=== PATIENT | female | born 2005 | race Caucasian/White ===

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

== ENCOUNTER 2025-08-04 17:50 | Emergency (ER) | payer BC, SELFPAY ==
[2025-08-04 17:52] VITALS: BP 126/79; PULSE 100; RESP 18; TEMP 36.2; O2SAT 98
--- NOTE | 2025-08-04 17:59 | ED.GENADUL_ITS ---
Discharge Plan Disposition Patient Disposition: Home Condition: Stable Discharge Details Clinical Impression: Bronchitis Primary Care Provider: Unknown,Unknown ED Provider: Thai Kline Home Meds and New Rx's Prescriptions: New amoxicillin-pot clavulanate 875-125 mg tablet 1 tab PO BID 5 Days Qty: 9 0RF Continued diphenhydramine HCl 25 MG capsule 25 mg PO PRN PRN epinephrine [EpiPen Jr 2-Miguelito] 0.15 MG/0.3 ML auto-injector 0.15 mg IM BID PRN (Reason: Anaphylaxis) Qty: 1 0RF loratadine [Claritin] 10 MG tablet 10 mg PO DAILY PRN Nexplanon 68 mg implant 1 implant subdermal ONCE Rx Instructions: as a single dose escitalopram oxalate 10 mg tablet 10 mg PO DAILY Patient Comments: TAKE ONE TABLET BY MOUTH EVERY DAY Discharge Instructions Instructions: Azithromycin (Systemic), Amoxicillin and Clavulanate, Bronchitis, Adult ED Additional Instructions: You were seen in the emergency department for your cough with productive phlegm and sputum for the past 2 to 3 weeks. This is a reasonable onset to treat with empiric antibiotics, you were prescribed Augmentin and azithromycin, please pick these up at your pharmacy and take them as directed starting tomorrow after the dose we gave you tonight. Please use therapeutic dosing of Tylenol (acetamenophen) & Advil (ibuprofen) in an alternating fashion as follows: Take 1000mg of Tylenol every 6 hours without missing doses- that is 4 times per day. Longterm in between the Tylenol dosings, take 400-600mg of Advil also on a 6 hour schedule, that is also 4 times per day. The daily maximum dosing of Tylenol is 4000mg, and the daily maximum dosing of Advil is 2400mg. This is safe to do for weeks. Please note that some common cold medications & prescription pain medications may contain acetamenophen and you need to read OTC drug labels and factor that in to maximum daily dosings. Use your inhaler as often as needed for shortness of breath, stay well-hydrated, please return for any respiratory distress or other emergent concerns. Discharge Data Discharge Date/Time-TO BE ENTERED AT DEPARTURE: 08/04/25 20:37 HPI General Date/Time Provider Initiated Documentation: 08/04/25 17:59 . HPI Narrative: 19 year-old female presents to ED today by POV/ambulating with a chief complaint of cough/cold symptoms with onset 2-3 weeks ago. Quality described as generalized cough, not getting better, thick mucous, no radiation to fever, shortness of breath, chest pain, profound lethargy, nausea/vomiting. Severity is described as moderate. Palliating factors include OTC meds not helping. [place] arsenio factors include nothing specific. Events leading up to the incident/Associated Symptoms: Patient has asthma and has run out of her inhaler. Patient not anticoagulated. Related Data Home Medications ?Medication ?Instructions ?Recorded ?Confirmed diphenhydramine HCl 25 mg capsule 25 mg PO PRN PRN 03/2708/04/25 epinephrine 0.15 mg/0.3 mL 0.15 mg (0.3 mL) IM BID PRN 04/15/17 08/04/25 injection,auto-injector (EpiPen Jr Anaphylaxis #1 pack et 2-Miguelito) etonogestrel 68 mg subdermal 1 implant subdermal ONCE 02/12/24 08/04/25 implant (Nexplanon) loratadine 10 mg tablet (Claritin) 10 mg PO DAILY PRN 02/12/24 08/04/25 amoxicillin 875 mg-potassium 1 tab PO BID 5 days #9 ta bs 08/04/25 clavulanate 125 mg tablet escitalopram oxalate 10 mg tablet 10 mg PO DAILY 08/0408/04/25 Previous Rx's ?Medication ?Instructions ?Recorded epinephrine 0.15 mg/0.3 mL 0.15 mg (0.3 mL) IM BID PRN 04/15/17 injection,auto-injector (EpiPen Jr Anaphylaxis #1 pack et 2-Miguelito) amoxicillin 875 mg-potassium 1 tab PO BID 5 days #9 ta bs 08/04/25 clavulanate 125 mg tablet Allergies Allergy/AdvReac Type Severity Reaction Status Date / Time No Known Allergies Allergy Unverified 08/04/25 17:56 General Stated Complaint: RespSymp CHRISTEN: 3 Review of Systems All systems reviewed & are unremarkable except as noted in HPI and below Exam Narrative Exam Narrative: GENERAL APPEARANCE: Well-nourished, non-toxic, awake and alert, atraumatic, no acute distress. SKIN: Warm, pink, dry, intact, without rashes/lesions/ulcerations. HEAD: Normocephalic, atraumatic, normal hair distribution for gender/age. EYES: Normal conjunctiva, no exudates on lids/lashes. ENT: Nares patent, no circumoral cyanosis, no facial swelling, benign posterior oropharynx NECK: Supple, trachea midline, painless cervical ROM. LUNGS/CHEST: Lungs CTA bilaterally- no focal wheezes/rhonchi, non-labored respirations, normal A/P diameter, symmetrical expansion, no chest wall deformity HEART (CV/PV): Regular rate and rhythm without murmur, no peripheral edema, no JVD. ABDOMEN: Soft, non-distended, no guarding. MSK: Normal ROM, no swelling/deformity to bilateral UEs or LEs, moving all extremities without weakness, no cyanosis, spine midline without tenderness, normal curvature. NEURO: Mental Status AAOx4 - alert to person, place, time, events No facial droop, no forehead involvement. Motor: No focal weakness - strength 5/5 in bilateral UEs and LEs, proximal and distal, symmetric. Sensory: sensation intact to light touch globally. Gait normal: patient ambulated without ataxia into ED room. PSYCH: euthymic, cooperative, pleasant, appropriate speech Course Vital Signs Vital signs: Vital Signs Temperature 36.2 C L 08/04/25 17:52 Pulse 100 H 08/04/25 17:52 Respiratory Rate 18 08/04/25 17:52 Blood Pressure 126/79 08/04/25 17:52 Pulse Oximetry 98 08/04/25 17:52 Temperature 36.2 C L 08/04/25 17:52 Temperature Source Tympanic 08/04/25 17:52 Pulse 100 H 08/04/25 17:52 Respiratory Rate 18 08/04/25 17:52 Blood Pressure 126/79 08/04/25 17:52 Pulse Oximetry 98 08/04/25 17:52 Oxygen Delivery Method Room Air 08/04/25 17:52 Oxygen Flow Rate 0 08/04/25 17:52 Pain Level 0 08/04/25 17:52 Medical Decision Making This dictation utilizes [id number] dictation software and may contain unedited grammatical errors. 19 year-old female presents to ED today by POV/ambulating with a chief complaint of cough/cold symptoms with onset 2-3 weeks ago. Quality described as generalized cough, not getting better, thick mucous, no radiation to fever, shortness of breath, chest pain, profound lethargy, nausea/vomiting. Severity is described as moderate. Palliating factors include OTC meds not helping. Pr ovoking factors include nothing specific. Events leading up to the incident/Associated Symptoms: Patient has asthma and has run out of her inhaler. Patients' medical history: asthma. Family and social history: noncontributory. Pertinent exam findings / vital signs include lungs CTA, nontoxic and afebrile, no respiratory distress. Differential / pathologies of concern include pneumonia, bronchitis, less likely viral syndrome with 3 week onset, not sepsis or respiratory distress. Diagnostic studies of: -XR Chest - no focal pneumonia seen. Interventions of: -1 nebulizer treatment, inhaler to go, Rx for Augmentin/azith for bronchitis. ED Course/Assessment/Plan: 19-year-old female presents with 3 weeks of upper respiratory infection with some mucus production, x-ray shows no focal pneumonia, she is afebrile and in no respiratory distress, reasonable to trial antibiotics due to length of onset, strict return Kohr any respiratory distress. Findings not consistent with pneumonia, sepsis, respiratory distress. Disposition of bronchitis. Patient verbalized understanding of the plan and return to ED criteria and engaged in shared decision making. Medical Records Medical records reviewed: Yes I reviewed the patient's medical records. Imaging Data Radiologic Study: Attestation: I personally reviewed and interpreted this imaging study as follows: Imaging: X-Ray Radiologist's impression: Exam: XR Chest Exam date and time: 08/04/2025 7:17 PM Age: 19 years old Clinical indication: Cough TECHNIQUE: Imaging protocol: Radiologic exam of the chest. Views: 2 views. COMPARISON: CT THORACIC LUMBAR SPINE WO 02/12/2024 9:36 AM FINDINGS: Lungs: Unremarkable. No consolidation. Pleural spaces: Unremarkable. No pleural effusion. No pneumothorax. Heart/Mediastinum: Unremarkable. No cardiomegaly. Bones/joints: Unremarkable. IMPRESSION: No acute findings. Dictated and Authenticated by: Norm Olivo MD. Lab Data Lab results reviewed: Yes I reviewed the patient's lab results. PFSH All Active Problems (Updated 08/04/25 @ 20:03 by LAURO Dick) Bronchitis (Acute) Acute cervical myofascial strain (Acute) Social History Smoking/Tobacco Use Status: Never Smoking risk assessment performed?: Yes Alcohol Intake: never Drug use: Never Substance use type: does not use Housing: house Do you feel safe in your relationship?: Yes
[2025-08-04] MEDS: Albuterol/Ipratropium 3 ML UPD VIAL UPD (18:30)
[2025-08-04 18:31] VITALS: BP 126/79; PULSE 100; RESP 18; TEMP 36.2; O2SAT 98
[2025-08-04 19:16] VITALS: BP 124/70; PULSE 92; RESP 18; O2SAT 99
--- NOTE | 2025-08-04 19:16 | DI.RAD_ITS ---
Exam(s) XR CHEST 2V PA LATERAL EXAM: XR CHEST 2V PA LATERAL CLINICAL HISTORY: cough TECHNIQUE: 2D digital imaging was performed. Two views. COMPARISON: No exams were available for comparison FINDINGS: HEART: Normal size. Aorta: Not dilated. PULMONARY VASCULATURE: Normal. MEDIASTINUM: Unremarkable. LUNGS: Clear. PLEURAL SPACE: No pleural effusion or pneumothorax. BONE:Unremarkable for age. SOFT TISSUES: Unremarkable. IMPRESSION: No acute abnormality. The preliminary [facility] report was reviewed. DATA REPOSITORY: RADIATION DOSE DELIVERED:
[2025-08-04] MEDS: Azithromycin 250 MG TAB 500 MG PO (20:15)
[2025-08-04] MEDS: Albuterol HFA 8 GM 60 PUFF INH IH (20:15)
[2025-08-04] MEDS: Amoxicillin 875/Clav. 125 TAB PO (20:15)
--- NOTE | 2025-08-04 20:21 | DI.[facility]_ITS ---
PROCEDURE INFORMATION: Exam: XR Chest Exam date and time: 08/04/2025 7:17 PM Age: 19 years old Clinical indication: Cough TECHNIQUE: Imaging protocol: Radiologic exam of the chest. Views: 2 views. COMPARISON: CT THORACIC LUMBAR SPINE WO 02/12/2024 9:36 AM FINDINGS: Lungs: Unremarkable. No consolidation. Pleural spaces: Unremarkable. No pleural effusion. No pneumothorax. Heart/Mediastinum: Unremarkable. No cardiomegaly. Bones/joints: Unremarkable. IMPRESSION: No acute findings. Dictated and Authenticated by: Norm Olivo MD. Orderin Eliud Andre MD
[2025-08-04 20:29] VITALS: PULSE 90; O2SAT 99
== END 2025-08-04 20:37 | disposition home or self-care (01) ==
PROVIDERS: Emergency Provider Physician Assistant
DX: J40 Bronchitis, not specified as acute or chronic (principal)
CPT/HCPCS: 81025; 94640; 99284; 71046; J7620

== ENCOUNTER 2025-08-11 20:05 | Emergency (ER) | payer BC, SELFPAY ==
[2025-08-11] VITALS (16 sets, daily range): BP systolic 82–129; BP diastolic 45–74; PULSE 59–79; RESP 16–20; TEMP 36.7; O2SAT 98–100
[2025-08-11] MEDS: diphenhydrAMINE 25 MG CAP 50 MG PO (20:54)
--- NOTE | 2025-08-11 21:56 | W.ED.GENAD ---
Discharge Plan Disposition Patient Disposition: Home Condition: Stable Discharge Details Clinical Impression: Allergic reaction Primary Care Provider: Unknown,Unknown ED Provider: Helen Mcdonald Home Meds and New Rx's Prescriptions: New epinephrine [Auvi-Q] 0.3 mg/0.3 mL auto-injector 0.3 mg IM ONCE Qty: 2 0RF Rx Instructions: as a single dose; may repeat once No Action diphenhydramine HCl 25 MG capsule 25 mg PO PRN PRN epinephrine [EpiPen Jr 2-Miguelito] 0.15 MG/0.3 ML auto-injector 0.15 mg IM BID PRN (Reason: Anaphylaxis) Qty: 1 0RF loratadine [Claritin] 10 MG tablet 10 mg PO DAILY PRN Nexplanon 68 mg implant 1 implant subdermal ONCE Rx Instructions: as a single dose escitalopram oxalate 10 mg tablet 10 mg PO DAILY Patient Comments: TAKE ONE TABLET BY MOUTH EVERY DAY albuterol sulfate 90 mcg/actuation HFA aerosol inhaler 2 puff INHALATION Q4H PRN Discharge Instructions Instructions: Allergic Reaction ED Additional Instructions: You were seen in the emergency department today for evaluation of hives on your skin likely due to an allergic reaction. In our department notable physical examination performed, received medications for management of your hives, and had reassuring laboratory studies including a negative mononucleosis test. You received antihistamines and steroids for management of your hives. You did not require epinephrine but I did provide you with a refill on your EpiPen's, please pick these up at the pharmacy and keep them on your person. Your allergy list has been updated, as you likely are experiencing a reaction to the azithromycin that you recently took. If you do give yourself an EpiPen for shortness of breath, throat swelling, or other symptoms of anaphylaxis, you need to come to the emergency department for evaluation afterwards. You can continue to use Benadryl or nonsedating antihistamine such as Claritin or Zyrtec as needed for itching and rash. Please follow-up with your primary care provider in the next few days to discuss this visit and any symptoms that change, worsen, or persist. Thank you for allowing us to be part of your care. HPI General Mode of arrival: ambulatory. Date/Time Provider Initiated Documentation: 08/11/25 20:09. Limitations to Documentation: no limitations. Information obtained by: patient and old records reviewed. HPI Narrative: This is a 19-year-old female patient with a past medical history significant for seasonal allergies and a recent visit to our emergency department with a diagnosis of bronchitis after 3 weeks of shortness of breath, runny nose, and productive cough, presenting for evaluation of a skin rash. She reports that she completed a course of azithromycin yesterday, and today woke up with itchy red bumps all over her body. She reports that she cannot think of any other allergen exposures, does not typically have a problem with peanut butter though has been eating more of this recently. No other new soaps or detergents. The patient reports that she does not have any new or worsening shortness of breath, sensation of throat closing, or nausea. She did have 1 episode of vomiting earlier today, but currently feels well. She has not taken any medications at home to manage her symptoms. She has an EpiPen prescribed to her but has not needed to use it in many many years. Related Data Home Medications ?Medication ?Instructions ?Recorded ?Confirmed diphenhydramine HCl 25 mg capsule 25 mg PO PRN PRN 04/15/17 08/11/25 epinephrine 0.15 mg/0.3 mL 0.15 mg (0.3 mL) IM BID PRN 04/15/17 08/11/25 injection,auto-injector (EpiPen Jr Anaphylaxis #1 packet 2-Miguelito) etonogestrel 68 mg subdermal 1 implant subdermal ONCE 02/12/24 08/11/25 implant (Nexplanon) loratadine 10 mg tablet (Claritin) 10 mg PO DAILY PRN 02/12/24 08/11/25 escitalopram oxalate 10 mg tablet 10 mg PO DAILY 08/04/25 08/11/25 albuterol sulfate 90 mcg/actuation 2 puff inhalation Q4H PRN 08/11/25 08/11/25 aerosol inhaler epinephrine 0.3 mg/0.3 mL 0.3 mg (0.3 mL) IM ONCE #2 ea 08/11/25 injection, auto-injector (Auvi-Q) Previous Rx's ?Medication ?Instructions ?Recorded epinephrine 0.15 mg/0.3 mL 0.15 mg (0.3 mL) IM BID PRN 04/15/17 injection,auto-injector (EpiPen Jr Anaphylaxis #1 packet 2-Miguelito) epinephrine 0.3 mg/0.3 mL 0.3 mg (0.3 mL) IM ONCE #2 ea 08/11/25 injection, auto-injector (Auvi-Q) Allergies Allergy/AdvReac Type Severity Reaction Status Date / Time azithromycin Allergy Intermediate Hives Verified 08/11/25 22:57 General Stated Complaint: RashLesion CHRISTEN: 3 Exam Narrative Exam Narrative: Gen: Awake and alert, in no apparent distress HEENT: Non-icteric sclera, PERRL, conjunctiva not injected. Posterior pharynx without erythema, edema, or swelling. No changes in voice Neck: Supple, stridor Lungs: No apparent respiratory distress, normal respiratory effort. Lung sounds clear and equal bilaterally without wheezes, rhonchi, rales CV: Appears well perfused, heart with regular rate and rhythm, strong distal pulses Abdomen: Non-distended, soft, nontender MSK: Moves 4 extremities without apparent limitation in ROM Skin: Visualized skin with diffuse raised red bumps, with some urticarial changes. Some excoriations are appreciated especially along the patient's back. The rash is diffuse across the torso, abdomen, back, and extremities. No blistering, petechiae Neuro: Normal Gait, no obvious focal deficits or facial asymmetry. Speaks in full, clear sentences. Psych: Appropriate for situation. Course Vital Signs Vital signs: Vital Signs Temperature 36.7 C 08/11/25 20:14 Pulse 79 08/11/25 20:14 Respiratory Rate 20 08/11/25 20:14 Blood Pressure 129/74 08/11/25 20:14 Pulse Oximetry 99 08/11/25 20:14 Temperature 36.7 C 08/11/25 20:14 Pulse 79 08/11/25 20:14 Respiratory Rate 20 08/11/25 20:14 Blood Pressure 129/74 08/11/25 20:14 Blood Pressure Position Sitting 08/11/25 20:14 Pulse Oximetry 99 08/11/25 20:14 Oxygen Delivery Method Room Air 08/11/25 20:14 Oxygen Flow Rate 0 08/11/25 20:14 Medical Decision Making This is a 19-year-old female patient presenting for evaluation of a body rash. Differential includes but is not limited to allergic reaction, especially given her recent antibiotic use. Reassuringly, the patient does not have any throat swelling, shortness of breath, or hypotension to significantly increase my concern for anaphylaxis. Her single episode of vomiting was considered, at this time we will continue to monitor for further GI involvement given her overall very reassuring appearance. I also considered my differential viral exanthem, drug eruptions including dress, skin exam less concerning for SJS/TEN. I had a shared decision-making conversation with the patient, who is desiring to try oral medications to start. I will provide her with 50 mg of p.o. Benadryl. We will continue to observe and any development of airway or throat involvement will warrant escalation to anaphylaxis treatment. -On repeat evaluation the patient reports that the Benadryl has not helped at all. For this reason we will initiate an IV, and provide the patient with Pepcid and Solu-Medrol. I will also obtain labs to include CBC, CMP, magnesium, and Monospot. - The patient did experience what appears to be a vasovagal episode with transient decrease in blood pressure and lightheadedness after IV initiation. A liter of IV fluids will be provided. I independently interpreted the laboratory studies, which show no significant leukocytosis, anemia, or thrombocytopenia. The chemistry panel is without evidence of electrolyte abnormality, kidney dysfunction, or liver injury. Monospot negative. I have a low concern for emergent drug eruption. The patient had improvement in her blood pressure after fluids, was able to ambulate about the department without lightheadedness or dizziness. Her itchiness has resolved and her rash is much improved. A refill of her EpiPen was sent to her pharmacy and we discussed warning signs for anaphylaxis and use of an EpiPen. At this time, the patient has had a full medical evaluation and is safe for discharge to home. They are hemodynamically stable, ambulatory, and tolerating PO. They are understanding of the follow-up plan and return precautions. They left our facility without incident. Helen Mcdnoald MD [facility] All Active Problems (Updated 08/11/25 @ 22:58 by Helen Mcdonald MD) Allergic reaction (Acute) Bronchitis (Acute) Acute cervical myofascial strain (Acute) Social History Smoking/Tobacco Use Status: Never Smoking risk assessment performed?: Yes Alcohol Intake: never Drug use: Never Substance use type: does not use Housing: house Do you feel safe in your relationship?: Yes
[2025-08-11 22:20] LABS: Abs Immature Grans 0.02 10^3/uL (0.0-0.06); HCT 38.2 % (36.0-46.0); HGB 12.6 g/dL (11.2-15.7); Immature Grans % 0.3 %; MCH 29.9 pg (27.0-33.0); MCHC 33.0 % (32.0-36.0); MCV 91 fL (80-95); MPV 8.3 fL (8.0-11.0); Platelet Count 255 10^3/uL (130-400); RBC 4.22 10^6/uL (3.93-5.22); RDW 12.4 % (11.7-14.6); RDW-SD 40.8 fL; WBC 6.77 10^3/uL (4.4-10.8)
[2025-08-11] MEDS: Lactated Ringers 1,000 ML 1000 ML IV (22:29)
[2025-08-11 22:31] LABS: Mono Screening Negative (Negative)
[2025-08-11] MEDS: Famotidine 20 MG/2 ML VIAL IVP (22:31)
[2025-08-11] MEDS: methylPREDNISolone SUCC 125 MG VIAL IVP (22:31)
[2025-08-11 22:38] LABS: ALT 23 U/L (14-59); AST 16 U/L (15-37); Albumin 3.4 g/dL (3.4-5.0); Alkaline Phosphatase 72 U/L (46-116); Anion Gap 7.8 mmol/L (3-11); BUN 15 mg/dL (7-18); Bilirubin, Total 0.4 mg/dL (0.2-1.0); CO2 28.2 mmol/L (21.0-32.0); Calcium 8.7 mg/dL (8.5-10.1); Chloride 105 mmol/L (98-107); Estimated GFR 108.78 (mL/min/1.73m2); Glucose 90 mg/dL (74-106); Magnesium 1.9 mg/dL (1.8-2.4); Potassium 3.7 mmol/L (3.5-5.1); Sodium 141 mmol/L (136-145); Total Protein 7.3 g/dL (6.4-8.2)
[2025-08-12] VITALS: PULSE 64; O2SAT 97
[2025-08-12 00:01] VITALS: BP 83/45; PULSE 63; O2SAT 98
[2025-08-12 00:05] VITALS: BP 106/65; PULSE 71
[2025-08-12 00:11] VITALS: BP 106/65; PULSE 67; RESP 18; O2SAT 98
== END 2025-08-12 00:40 | disposition home or self-care (01) ==
PROVIDERS: Emergency Provider Emergency Medicine
DX: T78.40XA Allergy, unspecified, initial encounter (principal)
CPT/HCPCS: 99284 ×2; 36415; 96374; 96375; 80053; 96361; 83735; 85025; 86308; J2919

== ENCOUNTER 2025-08-12 15:38 | Emergency (ER) | payer BC, SELFPAY ==
[2025-08-12 15:40] VITALS: BP 143/79; PULSE 84; RESP 20; TEMP 36.8; O2SAT 96
--- NOTE | 2025-08-12 16:22 | W.ED.GENAD ---
Discharge Plan Disposition Patient Disposition: Home Condition: Stable Discharge Details Clinical Impression: Allergic reaction Primary Care Provider: Rizwan Fraser ED Provider: Thai Kline Home Meds and New Rx's Prescriptions: New prednisone 20 mg tablet See Rx Instructions .ROUTE .COMPLEX Qty: 18 0RF Rx Instructions: take 3 tablets by mouth once per day for 3 days, then take 2 tablets by mouth once per day for 3 days, then take 1 tablet by mouth once per day for 3 days Continued diphenhydramine HCl 25 MG capsule 25 mg PO PRN PRN epinephrine [EpiPen Jr 2-Miguelito] 0.15 MG/0.3 ML auto-injector 0.15 mg IM BID PRN (Reason: Anaphylaxis) Qty: 1 0RF loratadine [Claritin] 10 MG tablet 10 mg PO DAILY PRN Nexplanon 68 mg implant 1 implant subdermal ONCE Rx Instructions: as a single dose escitalopram oxalate 10 mg tablet 10 mg PO DAILY Patient Comments: TAKE ONE TABLET BY MOUTH EVERY DAY albuterol sulfate 90 mcg/actuation HFA aerosol inhaler 2 puff INHALATION Q4H PRN epinephrine [Auvi-Q] 0.3 mg/0.3 mL auto-injector 0.3 mg IM ONCE Qty: 2 0RF Rx Instructions: as a single dose; may repeat once Discharge Instructions Instructions: Prednisone, Allergic Reaction ED Additional Instructions: You were seen in the emergency department for your worsening rash, we are starting you on a 9-day taper of prednisone, take this as directed. Take an pypf-ape-[id number] /Claritin/Zyrtec of your preference of brand 1-2 times daily, you can take Benadryl in the evening, you can also take aqno-sgy-eqmimje Pepcid/famotidine for histamine 2 blocking, take 400 mg of ibuprofen every 6 hours, monitor your condition closely for any sloughing of skin with pressure, nausea or vomiting or respiratory distress or airway concerns and return for any, please speak to your primary care provider if you continue to have respiratory symptoms. Referrals: Rizwan Fraser [Primary Care Provider, Medicine] Discharge Data Discharge Date/Time-TO BE ENTERED AT DEPARTURE: 08/12/25 16:59 HPI General Date/Time Provider Initiated Documentation: 08/12/25 15:38. HPI Narrative: 19 year-old female presents to ED today by POV/ambulating with a chief complaint of worsening rash, 4 weeks of respiratory infection treated with azithro/augmentin by myself last week after negative chest x-ray for presumptive bacterial duration of illness- added azithromycin to allergy list with onset of worsening rash today after being seen last night given solumedrol and benadryl. Quality described as itchy rash to legs and entire torso, now feels like its spreading to her face, no radiation to nausea/vomiting, sloughing of skin, fever, difficulty breathing, wheezing. Severity is described as severe for rash. Palliating factors include improvement after meds yesterday. Provoking factors include worsened today even after benadryl. Events leading up to the incident/Associated Symptoms: patient denies any other known allergens. Patient not anticoagulated. Related Data Home Medications ?Medication ?Instructions ?Recorded ?Confirmed diphenhydramine HCl 25 mg capsule 25 mg PO PRN PRN 04/15/17 08/12/25 epinephrine 0.15 mg/0.3 mL 0.15 mg (0.3 mL) IM BID PRN 04/15/17 08/12/25 injection,auto-injector (EpiPen Jr Anaphylaxis #1 packet 2-Miguelito) etonogestrel 68 mg subdermal 1 implant subdermal ONCE 02/12/24 08/12/25 implant (Nexplanon) loratadine 10 mg tablet (Claritin) 10 mg PO DAILY PRN 02/12/24 08/12/25 escitalopram oxalate 10 mg tablet 10 mg PO DAILY 08/04/25 08/12/25 albuterol sulfate 90 mcg/actuation 2 puff inhalation Q4H PRN 08/11/25 08/12/25 aerosol inhaler epinephrine 0.3 mg/0.3 mL 0.3 mg (0.3 mL) IM ONCE #2 ea 08/11/25 08/12/25 injection, auto-injector (Auvi-Q) prednisone 20 mg tablet See Rx Instructions .Route 08/12/25 .COMPLEX #18 tabs Previous Rx's ?Medication ?Instructions ?Recorded epinephrine 0.15 mg/0.3 mL 0.15 mg (0.3 mL) IM BID PRN 04/15/17 injection,auto-injector (EpiPen Jr Anaphylaxis #1 packet 2-Miguelito) epinephrine 0.3 mg/0.3 mL 0.3 mg (0.3 mL) IM ONCE #2 ea 08/11/25 injection, auto-injector (Auvi-Q) prednisone 20 mg tablet See Rx Instructions .Route 08/12/25 .COMPLEX #18 tabs Allergies Allergy/AdvReac Type Severity Reaction Status Date / Time azithromycin Allergy Intermediate Hives Verified 08/12/25 15:43 General Stated Complaint: RashLesion CHRISTEN: 3 Review of Systems All systems reviewed & are unremarkable except as noted in HPI and below Exam Narrative Exam Narrative: GENERAL APPEARANCE: Well-nourished, non-toxic, awake and alert, atraumatic, no acute distress. SKIN: Warm, pink, dry, diffuse urticarial rash to the back and torso, legs not visualized HEAD: Normocephalic, atraumatic, normal hair distribution for gender/age. EYES: Normal conjunctiva, no exudates on lids/lashes. ENT: Nares patent, no circumoral cyanosis, no facial swelling NECK: Supple, trachea midline, painless cervical ROM. LUNGS/CHEST: Lungs CTA bilaterally- no wheezing, non-labored respirations, normal A/P diameter, symmetrical expansion, no chest wall deformity HEART (CV/PV): Regular rate and rhythm without murmur, no peripheral edema, no JVD. ABDOMEN: Soft, non-distended, no guarding. MSK: Normal ROM, no swelling/deformity to bilateral UEs or LEs, moving all extremities without weakness, no cyanosis, spine midline without tenderness, normal curvature. NEURO: Mental Status AAOx4 - alert to person, place, time, events No facial droop, no forehead involvement. Motor: No focal weakness Sensory: sensation intact to light touch globally. Gait normal: patient ambulated without ataxia into ED room. PSYCH: euthymic, cooperative, pleasant, appropriate speech Course Vital Signs Vital signs: Vital Signs Temperature 36.8 C 08/12/25 15:40 Pulse 84 08/12/25 15:40 Respiratory Rate 20 08/12/25 15:40 Blood Pressure 143/79 H 08/12/25 15:40 Pulse Oximetry 96 08/12/25 15:40 Temperature 36.8 C 08/12/25 15:40 Pulse 84 08/12/25 15:40 Respiratory Rate 20 08/12/25 15:40 Blood Pressure 143/79 H 08/12/25 15:40 Blood Pressure Position Sitting 08/12/25 15:40 Pulse Oximetry 96 08/12/25 15:40 Oxygen Delivery Method Room Air 08/12/25 15:40 Oxygen Flow Rate 0 08/12/25 15:40 Medical Decision Making This dictation utilizes vogqu-ne-yvar dictation software and may contain unedited grammatical errors. 19 year-old female presents to ED today by POV/ambulating with a chief complaint of worsening rash, 4 weeks of respiratory infection treated with azithro/augmentin by myself last week after negative chest x-ray for presumptive bacterial duration of illness- added azithromycin to allergy list with onset of worsening rash today after being seen last night given solumedrol and benadryl. Quality described as itchy rash to legs and entire torso, now feels like its spreading to her face, no radiation to nausea/vomiting, sloughing of skin, fever, difficulty breathing, wheezing. Severity is described as severe for rash. Palliating factors include improvement after meds yesterday. Provoking factors include worsened today even after benadryl. Events leading up to the incident/Associated Symptoms: patient denies any other known allergens. Patients' medical history: No known allergies. Family and social history: Noncontributory. Pertinent exam findings / vital signs include diffuse urticarial rash to the back and torso, legs not visualized, benign oropharynx without any oral lesions, no wheezing, maintaining airway inability to swallow. Differential / pathologies of concern include allergic reaction, amoxicillin rash. Diagnostic studies of: -reviewed diagnostics yesterday- negative mono-spot. Interventions of: -prednisone 9 day taper, recommend allergra/claritin/zyrtec daily, and famotidine daily. ED Course/Assessment/Plan: 19-year-old female presents for third visit close 1 to PCP for 4 weeks of respiratory infection and worsening rash, it is possible that she was allergic to an antibiotic, the rash appears atypical for an azithromycin rash but there is quite a similarity to amoxicillin rash, negative Monospot test yesterday do not suspect mono, plan to prescribe prednisone and recommend various antihistamines and regular dosing of ibuprofen with any sloughing of skin or oral symptoms worsening or respiratory distress to return immediately. Findings not consistent with SJS or TENS, anaphylaxis. Disposition of allergic reaction. Patient verbalized understanding of the plan and return to ED criteria and engaged in shared decision making. Medical Records Medical records reviewed: Yes I reviewed the patient's medical records. PFSH All Active Problems (Updated 08/12/25 @ 16:46 by LAURO Dick) Allergic reaction (Acute) Allergic reaction (Acute) Bronchitis (Acute) Acute cervical myofascial strain (Acute) Social History Smoking/Tobacco Use Status: Never Smoking risk assessment performed?: Yes Alcohol Intake: never Drug use: Never Substance use type: does not use Housing: house Do you feel safe in your relationship?: Yes
[2025-08-12 16:59] VITALS: BP 113/61; PULSE 72; RESP 16; O2SAT 98
== END 2025-08-12 16:59 | disposition home or self-care (01) ==
PROVIDERS: Emergency Provider Physician Assistant; PCP Family Medicine
DX: T36.0X5A Adverse effect of penicillins, initial encounter; R21 Rash and other nonspecific skin eruption
CPT/HCPCS: 99283

== ENCOUNTER 2025-09-17 00:55 | Emergency (ER) | payer BC, SELFPAY ==
[2025-09-17 00:57] VITALS: BP 139/74; PULSE 133; RESP 20; TEMP 37; O2SAT 98
--- NOTE | 2025-09-17 00:57 | W.ED.GENAD ---
Discharge Plan Disposition Patient Disposition: Home Condition: Good Discharge Details Clinical Impression: Viral illness Primary Care Provider: Rizwan Fraser ED Provider: Hood Powers [place] Meds and New Rx's Prescriptions: New ondansetron 4 mg Tablet,Disintegrating 4 mg PO Q8H PRN (Reason: nausea) Qty: 3 0RF Continued diphenhydramine HCl 25 MG capsule 25 mg PO PRN PRN epinephrine [EpiPen Jr 2-Miguelito] 0.15 MG/0.3 ML auto-injector 0.15 mg IM BID PRN (Reason: Anaphylaxis) Qty: 1 0RF Nexplanon 68 mg implant 1 implant subdermal ONCE Rx Instructions: as a single dose escitalopram oxalate 10 mg tablet 10 mg PO DAILY Patient Comments: TAKE ONE TABLET BY MOUTH EVERY DAY albuterol sulfate 90 mcg/actuation HFA aerosol inhaler 2 puff INHALATION Q4H PRN epinephrine [Auvi-Q] 0.3 mg/0.3 mL auto-injector 0.3 mg IM ONCE Qty: 2 0RF Rx Instructions: as a single dose; may repeat once Discharge Instructions Additional Instructions: You were seen in the ED for symptoms consistent with a viral illness. Your rapid strep and nasal swab are all negative, though your white count was elevated consistent with infection. You have improved with fluids and medications. Recommend resting and staying hydrated over the next couple of days. Alternate acetaminophen with ibuprofen for fever and pain. You have been provided with ondansetron for recurrent nausea. Follow-up with primary care next week if you are not improving. Return to ED for significantly worsening headache, neurologic change, difficulty breathing, persistent vomiting, abdominal pain, other concerns. Stand Alone Forms: Portal Information, Work Release Referrals: Rizwan Fraser [Primary Care Provider, Medicine] [facility] General Mode of arrival: ambulatory. Date/Time Provider Initiated Documentation: 09/17/25 00:57. Limitations to Documentation: no limitations. Information obtained by: patient. HPI Narrative: Patient presents to the ED with complaint of headache, body ache, nausea with dry heaves. Patient reports she developed a sore throat this morning. Subsequently developed headache which has now progressed to allover body pain, nausea with dry heaves, worsening headache. Continues to have sore throat. Has a lingering cough from previous diagnosis of bronchitis but had the most part recovered from that. Did take Excedrin for her headache which maybe helped a little. Still very nauseated. No shortness of breath or chest pain. Related Data Home Medications Medication Instructions Recorded Confirmed diphenhydramine HCl 25 mg capsule 25 mg PO PRN PRN 04/15/17 09/17/25 epinephrine 0.15 mg/0.3 mL 0.15 mg (0.3 mL) IM BID PRN 04/15/17 09/17/25 injection,auto-injector (EpiPen Jr Anaphylaxis #1 packet 2-Miguelito) etonogestrel 68 mg subdermal 1 implant subdermal ONCE 02/12/24 09/17/25 implant (Nexplanon) escitalopram oxalate 10 mg tablet 10 mg PO DAILY 08/04/25 09/17/25 albuterol sulfate 90 mcg/actuation 2 puff inhalation Q4H PRN 08/11/25 09/17/25 aerosol inhaler epinephrine 0.3 mg/0.3 mL 0.3 mg (0.3 mL) IM ONCE #2 ea 08/11/25 09/17/25 injection, auto-injector (Auvi-Q) ondansetron 4 mg disintegrating 4 mg PO Q8H PRN nausea #3 tabs 09/17/25 tablet Previous Rx's Medication Instructions Recorded epinephrine 0.15 mg/0.3 mL 0.15 mg (0.3 mL) IM BID PRN 04/15/17 injection,auto-injector (EpiPen Jr Anaphylaxis #1 packet 2-Miguelito) epinephrine 0.3 mg/0.3 mL 0.3 mg (0.3 mL) IM ONCE #2 ea 08/11/25 injection, auto-injector (Auvi-Q) ondansetron 4 mg disintegrating 4 mg PO Q8H PRN nausea #3 tabs 09/17/25 tablet Allergies Allergy/AdvReac Type Severity Reaction Status Date / Time azithromycin Allergy Intermediate Hives Verified 08/12/25 15:43 General CHRISTEN: 3 Exam Narrative Exam Narrative: Const: WDWN female in NAD. VS per triage. HEENT: NC/AT. Normal facial exam. OP is clear. Neck: Supple. Trachea midline. Lungs: Normal respiratory effort. Lungs are clear. Cor: RRR without murmur. Good radial pulses. GI: Soft/ND/NT. Neuro: A+O x 3. Normal speech, mentation. Cranial nerves II - XII grossly intact. No gross motor or sensory deficit. Ext: No C/C/E. Medical Decision Making Patient presenting to ED with onset of sore throat followed by headache followed by worsening symptoms to include body pain, nausea and dry heaves, worsening headache. She reports a lingering cough from previous but has no shortness of breath or chest pain. Headache started out as typical though she does not get them too often. Suspect this is all related to viral illness potentially COVID or influenza. She is tachycardic. She is neurologically intact. Complains of some neck stiffness but is completely supple with no meningeal sign. Will place an IV to give fluids, ketorolac, prochlorperazine. Will check a Fluvid as well as rapid strep and basic labs. Lungs are clear and saturations are normal for the time being I do not feel the need to proceed with chest imaging. Patient is much improved at this time and feels much better. Her rapid strep is negative. Fluvid is negative. White count is elevated to 17.4 with a preponderance of neutrophils. Chemistries and liver function unremarkable. At this point seems to have viral illness and will recommend rest and hydration over the next couple of days. Will send home with a few Zofran in case of recurrent nausea. She should alternate acetaminophen with ibuprofen. Follow-up with primary care next week if not improving. Return precautions provided. Lab Data Lab results reviewed: Yes I reviewed the patient's lab results. Lab results narrative: see [facility] All Active Problems (Updated 09/17/25 @ 02:08 by Hood Powers MD) Viral illness (Acute) Acute cervical myofascial strain (Acute) Social History Smoking/Tobacco Use Status: Never Smoking risk assessment performed?: Yes Alcohol Intake: never Drug use: Never Substance use type: does not use Housing: house Do you feel safe in your relationship?: Yes
[2025-09-17 01:16] LABS: Abs Immature Grans 0.06 10^3/uL (0.0-0.06); HCT 35.6 % (36.0-46.0); HGB 12.4 g/dL (11.2-15.7); Immature Grans % 0.3 %; MCH 30.5 pg (27.0-33.0); MCHC 34.8 % (32.0-36.0); MCV 88 fL (80-95); MPV 8.0 fL (8.0-11.0); Platelet Count 222 10^3/uL (130-400); RBC 4.06 10^6/uL (3.93-5.22); RDW 12.2 % (11.7-14.6); RDW-SD 39.2 fL; WBC 17.35 10^3/uL (4.4-10.8)
[2025-09-17] MEDS: Normal Saline 1,000 ML 1000 ML IV (01:20)
[2025-09-17] MEDS: Prochlorperazine 10 MG/2 ML VIAL IVP (01:21)
[2025-09-17] MEDS: Ketorolac 15 MG/ML VIAL IVP (01:21)
[2025-09-17 01:25] VITALS: PULSE 101; RESP 16; O2SAT 100
[2025-09-17 01:29] LABS: HCG Qual (Serum) Negative
[2025-09-17 01:33] LABS: ALT 16 U/L (14-59); AST 13 U/L (15-37); Albumin 3.2 g/dL (3.4-5.0); Alkaline Phosphatase 84 U/L (46-116); Anion Gap 9.9 mmol/L (3-11); BUN 9 mg/dL (7-18); Bilirubin, Total 1.1 mg/dL (0.2-1.0); CO2 24.1 mmol/L (21.0-32.0); Calcium 8.6 mg/dL (8.5-10.1); Chloride 105 mmol/L (98-107); Glucose 121 mg/dL (74-106); Potassium 3.6 mmol/L (3.5-5.1); Sodium 139 mmol/L (136-145); Total Protein 7.2 g/dL (6.4-8.2)
[2025-09-17 01:51] LABS: COVID-19 PCR Negative (Negative); RSV PCR Negative (Negative)
[2025-09-17 02:04] VITALS: PULSE 107; RESP 18; O2SAT 99
[2025-09-17] MEDS: Ondansetron O.D.T. 4 MG TABEF, 3 TABS/BTL PO (02:22)
[2025-09-17 02:23] VITALS: PULSE 99; RESP 18; O2SAT 99
== END 2025-09-17 02:24 | disposition home or self-care (01) ==
PROVIDERS: Emergency Provider Emergency Medicine; PCP Family Medicine
DX: B34.9 Viral infection, unspecified (principal)
CPT/HCPCS: 99283; 99284; 87880; 96374; 96375; 80053; 87637; 96361; 84703; 85025; 87081; J0780; J1885